=== PATIENT | female | born 1990 | race Caucasian/White ===

== ENCOUNTER 2017-01-07 17:59 | Emergency (ER) | payer OTHER ==
[2017-01-07 18:10] VITALS: O2SAT 100
[2017-01-07] MEDS ORDERED: Rhogam Plus 300 MCG IM ONE (18:24)
[2017-01-07 18:27] LABS: ADD URINE CULTURE? NO (NO); Bilirubin NEGATIVE (NEGATIVE); Blood NEGATIVE Ery/ul (0-5); COMPLETE URINE MICROSCOPIC? NO; Collection Type CLEAN CATCH; Glucose NEGATIVE (NEGATIVE); Leukocyte Esterase NEGATIVE (NEGATIVE)
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
[2017-01-07 18:50] LABS: BASOPHIL % 0.3 % (0.0-0.4); Eosinophil % 2.5 % (0.00-5.0); Granulocytes % 63.3 % (36.0-66.0); Lymphocytes % 26.3 % (24.0-44.0); Mean Cell Volume 86.9 fl (78-100); Mean Platelet Volume 10.9 fl (6-9.5); Monocytes % 7.6 % (0.0-12.0); Platelet Count 196 K/mm3 (150-450); Red Blood Count 3.96 M/mm3 (4.1-5.4); Red Cell Distribution Width 12.1 % (11.5-14.0); White Blood Count 7.5 K/mm3 (4.0-10.5)
[2017-01-07 18:58] LABS: Mean Corpuscular Hemoglobin 29.2 pg (26-32)
[2017-01-07 20:30] VITALS: BP 102/70; PULSE 72
== END 2017-01-07 20:30 | disposition home or self-care (01) ==
LOC: ED 17:59
DX: O36.0920 Maternal care for other rhesus isoimmunization, second trimester, not applicable or unspecified (principal); Z3A.15 15 weeks gestation of pregnancy; V43.53XA Car driver injured in collision with pick-up truck in traffic accident, initial encounter
CPT/HCPCS: 36415; 81002; 85025; 86850; 86900; 86901; 96372; 99284; J2790

== ENCOUNTER 2017-05-15 15:50 | Observation (INO) | payer OTHER ==
[2017-05-15 17:42] LABS: Appearance CLOUDY (CLEAR)
[2017-05-15 17:43] LABS: Amourphous Crystal MODERATE /HPF (NEGATIVE); Bacteria FEW /HPF (NEGATIVE); Bilirubin NEGATIVE (NEGATIVE); Blood NEGATIVE Ery/ul (0-5); Epithelial Cells MODERATE /HPF (FEW); Glucose NEGATIVE (NEGATIVE); Ketones NEGATIVE (NEGATIVE); Leukocyte Esterase 1+ (NEGATIVE); Nitrite NEGATIVE (NEGATIVE); Protein,Urine Dip NEGATIVE (Negative); Urobilinogen NORMAL mg/dL (0-1)
[2017-05-15] MEDS ORDERED: Lactated Ringers 1,000 ML IV ONE (18:06)
[2017-05-15] MEDS ORDERED: Lactated Ringers 1,000 ML IV SCH (18:30)
[2017-05-15 18:35] LABS: Amphetamine,Urine NEGATIVE (NEGATIVE); Barbiturate,Urine NEGATIVE (NEGATIVE); Benzodiazepine,Urine NEGATIVE (NEGATIVE); Cocaine,Urine NEGATIVE (NEGATIVE); Methadone,Urine NEGATIVE (NEGATIVE); Opiate,Urine NEGATIVE (NEGATIVE); PCP,Urine NEGATIVE (NEGATIVE); THC,Urine NEGATIVE (NEGATIVE)
[2017-05-15] MEDS ORDERED: BRETHINE 1 MG/ML SQ ONE (20:46)
[2017-05-15] MEDS ORDERED: BRETHINE 1 MG/ML ONE (20:47)
[2017-05-15 23:33] VITALS: BP 128/65; PULSE 104
== END 2017-05-15 23:22 | disposition home or self-care (01) ==
LOC: OB 15:50
PROVIDERS: ADMIT Family Medicine; ATTEND Family Medicine
DX: Z34.83 Encounter for supervision of other normal pregnancy, third trimester (principal)
CPT/HCPCS: 80307; 81000; G0378

== ENCOUNTER 2017-06-07 17:38 | Inpatient (IN) | payer OTHER ==
[2017-06-07 18:32] LABS: Amphetamine,Urine NEGATIVE (NEGATIVE); Barbiturate,Urine NEGATIVE (NEGATIVE); Benzodiazepine,Urine NEGATIVE (NEGATIVE); Cocaine,Urine NEGATIVE (NEGATIVE); Methadone,Urine NEGATIVE (NEGATIVE); Opiate,Urine NEGATIVE (NEGATIVE); PCP,Urine NEGATIVE (NEGATIVE); THC,Urine NEGATIVE (NEGATIVE)
[2017-06-07] MEDS ORDERED: MORPHINE SULFATE 4 MG INJ ONE (20:24)
[2017-06-07] MEDS ORDERED: Reglan 10 MG/2 ML ONE (20:35)
[2017-06-07] MEDS ORDERED: Pepcid 20 MG VIAL IV ONE (20:35)
[2017-06-07] MEDS ORDERED: Lactated Ringers 1,000 ML IV ONE ×2 (20:36→21:00)
[2017-06-07] MEDS ORDERED: Pepcid 20 MG VIAL IV SCH (21:00)
[2017-06-07] MEDS ORDERED: CEFAZOLIN 2 GM-D5W BAG** 2 GM/50 ML ML IV SCH (21:00)
[2017-06-07] MEDS ORDERED: Reglan 10 MG/2 ML IV SCH (21:00)
[2017-06-07 21:02] LABS: Hematocrit 33.7 % (35-47); Mean Cell Volume 84.7 fl (78-100); Mean Corpuscular Hemoglobin 27.6 pg (26-32); Mean Corpuscular Hgb Concent. 32.6 g/dl (32-36); Mean Platelet Volume 11.1 fl (6-9.5); Platelet Count 219 K/mm3 (150-450); Red Blood Count 3.98 M/mm3 (4.1-5.4); Red Cell Distribution Width 12.7 % (11.5-14.0); White Blood Count 12.2 K/mm3 (4.0-10.5)
[2017-06-07 21:17] LABS: INR 1.02 (0.8-3.0)
[2017-06-07 21:20] LABS: PTT 27.8 SECONDS (25.3-37.0)
[2017-06-07 21:32] LABS: ABO TYPING A; RH TYPING NEGATIVE
[2017-06-07 21:33] LABS: Antibody Screen POSITIVE (NEGATIVE)
[2017-06-07] MEDS ORDERED: CLARITIN 10 MG PO PRN (22:00)
[2017-06-07] MEDS ORDERED: Narcan 0.4 MG/ML IV PRN (22:00)
[2017-06-07] MEDS ORDERED: PERCOCET TABLET 5/325MG PO PRN (22:00)
[2017-06-07] MEDS ORDERED: MORPHINE SULFATE 2 MG INJ IV PRN (22:00)
[2017-06-07] MEDS ORDERED: DEMEROL 50 MG IV PRN (22:00)
[2017-06-07] MEDS ORDERED: BENADRYL 50 MG/ML IV PRN (22:00)
[2017-06-07] MEDS ORDERED: HOLD NARCOTIC ANALGESICS AND SEDATIVES X24 HR MC PRN (22:00)
[2017-06-07] MEDS: Zofran 4 MG/2 ML VIAL IV PRN (22:40)
[2017-06-07] MEDS ORDERED: Zofran 4 MG/2 ML VIAL ONE (22:52)
[2017-06-07] MEDS ORDERED: Dulcolax 10 MG SUPP PR PRN (23:11)
[2017-06-07] MEDS ORDERED: LANSINOH 40 GM TOP PRN (23:11)
[2017-06-07] MEDS ORDERED: Mylicon 80MG PO PRN (23:11)
[2017-06-07] MEDS ORDERED: Anucort-HC SUPPOSITORY PR PRN (23:11)
[2017-06-07] MEDS ORDERED: TYLENOL EXTRA STRENGTH 500 MG PO PRN (23:11)
[2017-06-07] MEDS ORDERED: CORTISONE 1% CREAM TP PRN (23:11)
[2017-06-07] MEDS ORDERED: Dextrose 5%-Lr IV Solution 1000 ML 1,000 ML IV SCH (23:30)
[2017-06-07] MEDS: Nubain 10 MG/ML IV PRN (23:30)
[2017-06-08] MEDS: Zofran 4 MG/2 ML VIAL IV PRN (02:48)
[2017-06-08 05:06] LABS: Appearance CLEAR (CLEAR); Bilirubin NEGATIVE (NEGATIVE); Blood 250 Ery/ul (0-5); Glucose NEGATIVE (NEGATIVE); Ketones SMALL (NEGATIVE); Leukocyte Esterase NEGATIVE (NEGATIVE); Nitrite NEGATIVE (NEGATIVE); Protein,Urine Dip NEGATIVE (Negative); Urobilinogen NORMAL mg/dL (0-1)
[2017-06-08 05:07] LABS: Bacteria FEW /HPF (NEGATIVE); Epithelial Cells MODERATE /HPF (FEW); Mucus MODERATE /HPF (NEGATIVE); WBC 0-2 /HPF (0-5)
[2017-06-08 05:25] LABS: Hematocrit 30.1 % (35-47); Hemoglobin 9.6 gm/dl (12.0-16.0); Mean Corpuscular Hemoglobin 27.4 pg (26-32); Mean Corpuscular Hgb Concent. 31.9 g/dl (32-36); Mean Platelet Volume 12.1 fl (6-9.5); Platelet Count 137 K/mm3 (150-450); Red Cell Distribution Width 12.7 % (11.5-14.0)
[2017-06-08 05:58] LABS: BAND 5 % (0.0-2.0); Lymphocytes 15 % (24-44); Monocyte 7 % (0.0-12.0); Neutrophils 73 % (36.0-66.0); Platelet Estimate DECREASED (NORMAL); Total Cells Counted 100
--- NOTE | 2017-06-08 07:52 | OP ---
SURGERY DATE/TIME: 06/07/20172114 PREOPERATIVE DIAGNOSES: 1) Term intrauterine in active labor. 2) History of prior section. POSTOPERATIVE DIAGNOSES: 1) Term intrauterine in active labor. 2) History of prior section. PROCEDURE: Repeat low transverse section. SURGEON: Eagle Zuñiga M.D. [employer]: certification technician. ESTIMATED BLOOD LOSS: 300 cc. IV FLUIDS: 1200 cc of crystalloid. URINE OUTPUT: 50 cc of clear straw-colored urine. ANESTHESIA: Spinal by Ralph Gillis CRNA. SPECIMENS: None. DESCRIPTION OF PROCEDURE: After informed written consent was obtained, the patient was taken to the operating room. She underwent spinal anesthesia. She was prepped and draped in the usual sterile fashion. Anesthesia was tested and noted to be adequate. A low transverse skin incision was made by knife through the area of prior scar and carried down to the subcutaneous fat to the level of the fascia. The fascia was nicked on both sides of the midline using curved Wadsworth scissors extended in horizontal fashion. The superior free edge of the fascia was grasped with Minerva clamps and the underlying rectus muscles were dissected free. The same was repeated inferiorly. The peritoneal cavity was opened and extended in horizontal fashion. Bladder blade was inserted. Bladder flap was created and reflected over the lower uterine segment. A horizontal uterine incision was made by knife and carried down to the amniotic membranes which were carefully artificially ruptured. Clear fluid was encountered. A viable male infant delivered from the vertex presentation with a strong cry immediately upon delivery. Oropharynx and nares were bulb suctioned free. The cord was clamped and cut and he was handed off to the awaiting nursery team. The placenta was manually removed from the uterus and the uterus was exteriorized. The uterine cavity was sponge curetted clean with lap sponge. The uterine incision was closed with #1 chromic in a running locked fashion. Good closure and good hemostasis were achieved. No active bleeding was noted. The posterior cul-de-sac was wiped free of blood and clot with moist lap sponge and the uterus was returned to the peritoneal cavity. Lateral gutters were wiped free of blood and clot with moist lap sponge and again the uterine incision was inspected and noted to be well approximated with good hemostasis. Next, the fascia was closed with 0 Vicryl in a running fashion with good closure and good hemostasis. Subcutaneous fat was irrigated with warm, sterile saline. Finally the skin layer was closed with 4-0 undyed Vicryl in a running subcuticular fashion. Steri-Strips and occlusive dressing were placed over the incision. The patient was transferred to the recovery in good condition.
[2017-06-08] MEDS: Nubain 10 MG/ML IV PRN (09:44)
[2017-06-08] MEDS ORDERED: Rhogam Plus 300 MCG IM ONE (10:00)
[2017-06-08] MEDS: FERREX 150 PO SCH (14:09)
[2017-06-08] MEDS: Colace 100 MG PO SCH ×3 (14:09→21:58)
[2017-06-08] MEDS: MOTRIN 400 MG PO PRN (20:21)
[2017-06-08] MEDS ORDERED: DEMEROL 75 MG IM PRN (22:00)
[2017-06-08] MEDS ORDERED: NORCO 5/325 MG PO PRN (22:00)
[2017-06-08] MEDS ORDERED: Phenergan 25 MG INJ IM PRN (22:00)
[2017-06-09] MEDS: MOTRIN 400 MG PO PRN ×3 (05:10→21:23)
--- NOTE | 2017-06-09 09:11 | PCM.DS ---
Discharge Summary Date of Admission: 06/07/17 17:38 Admitting Physician: HAL RAYMOND Consults: Consults on Case 06/07/17 21:00 Notify Anesthesia Provider ROUTINE Primary Care Provider: HAL RAYMOND Allergies Allergies No Known Drug Allergies Allergy (Verified 05/15/17 16:30) Hospital Summary - Hospital Course Hospital Course: arrived in labor at 37 wks, hx prior . had uneventful post-op course after repeat c/s. mild lochia, pain controlled with ibuprofen and tolerating po. - Vitals & Intake/Output Vital Signs: Vital Signs Temperature 97.8 F 06/09/17 05:45 Pulse Rate 82 06/09/17 05:45 Respiratory Rate 18 06/09/17 05:45 Blood Pressure 114/55 06/09/17 05:45 O2 Sat by Pulse Oximetry 96 06/08/17 19:30 Intake & Output: Intake & Output 06/06/17 06/07/17 06/08/17 06/09/17 11:59 11:59 11:59 11:59 Intake Total 997 Output Total 250 Balance 747 Weight 80.286 kg - Lab Result Diagrams: 06/08/17 04:52 Micro Results-Entire Visit: Microbiology 06/07/17 21:25 Urine Culture - Preliminary Urine, Catheterized NO GROWTH TO DATE Discharge Exam General Appearance: no apparent distress, alert Skin Exam: normal color, warm, dry Respiratory Exam: normal breath sounds, lungs clear, No respiratory distress Cardiovascular Exam: regular rate/rhythm, normal heart sounds Gastrointestinal/Abdomen Exam: soft, No tenderness, No mass Extremity Exam: normal inspection, normal range of motion Final Diagnosis/Problem List - Final Discharge Diagnosis/Problem (1) delivery delivered Current Visit: Yes Status: Acute Assessment & Plan: doing great, f/u 1 week - Discharge Disposition: Home, Self-Care Condition: Stable Prescriptions: No Action No Reportable Medications [No Reported Medications] Follow up with: HAL RAYMOND MD [Primary Care Provider] - 1 Week
[2017-06-09] MEDS: Colace 100 MG PO SCH (10:17)
[2017-06-09] MEDS: FERREX 150 PO SCH (10:17)
[2017-06-09] MEDS ORDERED: Astramorph-Pf 5 MG/10 ML IV ONE (16:20)
[2017-06-09] MEDS ORDERED: Marcaine Mpf 0.5% Vial 30 Ml IV ONE (16:20)
[2017-06-09] MEDS ORDERED: PHENYLEPHRINE HCL IV ONE (16:20)
[2017-06-09 20:31] VITALS: O2SAT 98
[2017-06-09 23:57] VITALS: BP 126/81; PULSE 100
== END 2017-06-09 22:40 | disposition home or self-care (01) | DRG 766 ==
LOC: OBSVTOIN 17:38 → OB 17:38
PROVIDERS: ADMIT Family Medicine; ATTEND Family Medicine
PROC: 10D00Z1 Extraction of Products of Conception, Low, Open Approach (ICD-10-PCS; principal; 2017-06-07)
DX: O34.211 Maternal care for low transverse scar from previous cesarean delivery (principal); Z37.0 Single live birth; Z3A.37 37 weeks gestation of pregnancy
CPT/HCPCS: 36415; 62322; 64488; 76937; 76942; 80307; 81000; 85025; 85027; 85461; 85610; 85730; 86850; 86870; 86900; 86901; 87086; 94799; 96372; G0378; J0690; J1200; J2270; J2274; J2300; J2370; J2405; J2790; A9270-GY

== ENCOUNTER 2017-10-09 13:21 | Emergency (ER) | payer OTHER ==
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
[2017-10-09 13:36] VITALS: BP 116/62; PULSE 90; O2SAT 98
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
== END 2017-10-09 14:32 | disposition home or self-care (01) ==
LOC: ED 13:21
DX: S90.121A Contusion of right lesser toe(s) without damage to nail, initial encounter (principal); W22.8XXA Striking against or struck by other objects, initial encounter; Y92.009 Unspecified place in unspecified non-institutional (private) residence as the place of occurrence of the external cause
CPT/HCPCS: 73630; 99283

== ENCOUNTER 2019-03-11 10:07 | Observation (INO) | payer OTHER ==
--- NOTE | 2019-03-11 11:32 | XRAY ---
Indication: Evaluate RUSTAM. Limited OB ultrasound performed to evaluate RUSTAM. There is a single intrauterine with heart rate 152 BPM. Four-quadrant RUSTAM is 9 cm, largest pocket 3.5 cm.
[2019-03-11 11:48] VITALS: BP 108/63; PULSE 92; O2SAT 96
[2019-03-11 11:54] LABS: Amphetamine,Urine NEGATIVE (NEGATIVE); Barbiturate,Urine NEGATIVE (NEGATIVE); Benzodiazepine,Urine NEGATIVE (NEGATIVE); Cocaine,Urine NEGATIVE (NEGATIVE); Methadone,Urine NEGATIVE (NEGATIVE); Opiate,Urine NEGATIVE (NEGATIVE); PCP,Urine NEGATIVE (NEGATIVE); THC,Urine NEGATIVE (NEGATIVE)
== END 2019-03-11 11:30 | disposition home or self-care (01) ==
LOC: UNDOADMOB 10:07 → OB 10:07 → UNDODISOB 11:30
PROVIDERS: ADMIT Family Medicine; ATTEND Family Medicine
DX: Z34.83 Encounter for supervision of other normal pregnancy, third trimester (principal)
CPT/HCPCS: 59025; 76815; 80307; G0378

== ENCOUNTER 2019-04-07 16:48 | Inpatient (IN) | payer OTHER ==
[2019-04-07] MEDS: Lactated Ringers 1,000 ML IV SCH ×2 (17:53→18:42)
[2019-04-07 18:21] LABS: Amphetamine,Urine NEGATIVE (NEGATIVE); Barbiturate,Urine NEGATIVE (NEGATIVE); Benzodiazepine,Urine NEGATIVE (NEGATIVE); Cocaine,Urine NEGATIVE (NEGATIVE); Methadone,Urine NEGATIVE (NEGATIVE); Opiate,Urine NEGATIVE (NEGATIVE); PCP,Urine NEGATIVE (NEGATIVE); THC,Urine NEGATIVE (NEGATIVE)
[2019-04-07 18:42] LABS: Appearance SLIGHTLY CLOUDY (CLEAR); Bacteria RARE /HPF (NEGATIVE); Bilirubin NEGATIVE (NEGATIVE); Blood NEGATIVE Ery/ul (0-5); Epithelial Cells RARE /HPF (FEW); Glucose NEGATIVE (NEGATIVE); Ketones NEGATIVE (NEGATIVE); Leukocyte Esterase NEGATIVE (NEGATIVE); Mucus SLIGHT /HPF (NEGATIVE); Nitrite NEGATIVE (NEGATIVE); Protein,Urine Dip 30 (Negative); Specific Gravity 1.018 (1.005-1.025); Urobilinogen 2 mg/dL (0-1)
[2019-04-07 18:44] LABS: Hematocrit 31.3 % (35-47); Hemoglobin 10.1 gm/dl (12.0-16.0); Mean Cell Volume 85.5 fl (78-100); Mean Corpuscular Hemoglobin 27.6 pg (26-32); Mean Corpuscular Hgb Concent. 32.3 g/dl (32-36); Mean Platelet Volume 10.5 fl (7.5-11.0); Platelet Count 177 K/mm3 (150-450); Red Blood Count 3.66 M/mm3 (4.1-5.4); Red Cell Distribution Width 12.6 % (11.5-14.0)
[2019-04-07] MEDS ORDERED: Pepcid 20 MG VIAL IV SCH (18:45)
[2019-04-07] MEDS ORDERED: BICITRA 30 ML CUP PO SCH (18:45)
[2019-04-07] MEDS ORDERED: Reglan 10 MG/2 ML IV SCH (18:45)
[2019-04-07 18:53] LABS: INR 1.05 (0.8-3.0); PROTIME 11.9 SECONDS (9.95-12.35)
[2019-04-07 18:55] LABS: PTT 29.2 SECONDS (25.3-37.0)
[2019-04-07] MEDS ORDERED: CEFAZOLIN 2 GM-D5W BAG** 2 GM/50 ML ML IV SCH (19:00)
[2019-04-07] MEDS ORDERED: Lactated Ringers 1,000 ML IV SCH (19:00)
[2019-04-07 19:36] LABS: ABO TYPING A; Antibody Screen POSITIVE (NEGATIVE); RH TYPING NEGATIVE
[2019-04-07] MEDS ORDERED: Astramorph-Pf 5 MG/10 ML ONE (19:45)
[2019-04-07] MEDS ORDERED: Pitocin 10 UNITS/ML ONE (19:59)
[2019-04-07] MEDS ORDERED: Zofran 4 MG/2 ML VIAL ONE (20:00)
[2019-04-07] MEDS ORDERED: Decadron 4 MG INJ ONE ×2 (20:00→20:28)
[2019-04-07] MEDS ORDERED: HOLD NARCOTIC ANALGESICS AND SEDATIVES X24 HR MC PRN (20:20)
[2019-04-07] MEDS ORDERED: Marcaine Spinal Ampul IJ ONE (20:28)
[2019-04-07] MEDS ORDERED: Naropin 0.5% 30 ML VIAL ONE (20:28)
[2019-04-07] MEDS ORDERED: Xylocaine-Mpf 2% 5 Ml Vial ONE (20:28)
[2019-04-07] MEDS ORDERED: TYLENOL EXTRA STRENGTH 500 MG PO PRN (21:26)
[2019-04-07] MEDS ORDERED: Dulcolax 10 MG SUPP PR PRN (21:26)
[2019-04-07] MEDS ORDERED: MOTRIN 400 MG PO PRN (21:26)
[2019-04-07] MEDS ORDERED: Ambien 10 MG PO PRN (21:26)
[2019-04-07] MEDS ORDERED: LANSINOH 40 GM TOP PRN (21:26)
[2019-04-07] MEDS ORDERED: Anucort-HC SUPPOSITORY PR PRN (21:26)
[2019-04-07] MEDS ORDERED: TUCKS TP PRN (21:26)
[2019-04-07] MEDS ORDERED: CORTISONE 1% CREAM TP PRN (21:26)
[2019-04-07] MEDS ORDERED: Dermoplast Spray TP PRN (21:26)
[2019-04-07] MEDS ORDERED: Phenergan 25 MG INJ IM PRN (21:26)
[2019-04-07] MEDS ORDERED: Mylicon 80MG PO PRN (21:26)
[2019-04-07] MEDS ORDERED: Dextrose 5%-Lr IV Solution 1000 ML 1,000 ML IV SCH (21:30)
[2019-04-07] MEDS ORDERED: Nubain 10 MG/ML IV PRN (21:41)
[2019-04-07] MEDS ORDERED: PERCOCET TABLET 5/325MG PO PRN (21:41)
[2019-04-07] MEDS ORDERED: CLARITIN 10 MG PO PRN (21:41)
[2019-04-07] MEDS ORDERED: Narcan 0.4 MG/ML IV PRN (21:41)
[2019-04-07] MEDS ORDERED: DEMEROL 50 MG IV PRN (21:41)
[2019-04-07] MEDS ORDERED: BENADRYL 50 MG/ML IV PRN (21:41)
[2019-04-07] MEDS ORDERED: Zofran 4 MG/2 ML VIAL IV PRN (21:41)
[2019-04-07] MEDS ORDERED: MORPHINE SULFATE 2 MG INJ IV PRN (21:41)
[2019-04-07] MEDS: Colace 100 MG PO SCH (21:46)
[2019-04-08 06:40] LABS: Absolute Neutrophil Ct (ANC) 13.88 (1.4-6.9); BASOPHIL % 0.1 % (0.0-0.4); Basophil (Absolute #) 0.01 (0-0.4); Eosinophil % 0.1 % (0.00-5.0); Eosinophil (Absolute #) 0.01 (0-0.5); Hematocrit 27.8 % (35-47); Hemoglobin 8.9 gm/dl (12.0-16.0); Lymphocyte (Absolute #) 1.07 (1.0-4.6); Mean Cell Volume 85.5 fl (78-100); Mean Corpuscular Hemoglobin 27.4 pg (26-32); Mean Platelet Volume 11.2 fl (7.5-11.0); Monocyte (Absolute #) 0.34 (0.0-1.3); Monocytes % 2.2 % (0.0-12.0); Neutrophil % 90.6 % (36.0-66.0); Platelet Count 228 K/mm3 (150-450); Red Blood Count 3.25 M/mm3 (4.1-5.4); Red Cell Distribution Width 12.4 % (11.5-14.0); White Blood Count 15.3 K/mm3 (4.0-10.5)
[2019-04-08] MEDS ORDERED: Rhogam Plus 300 MCG IM ONE (09:00)
[2019-04-08 09:50] VITALS: BP 120/62; PULSE 93; O2SAT 98
[2019-04-08] MEDS: Colace 100 MG PO SCH (09:52)
[2019-04-08] MEDS ORDERED: FERREX 150 PO SCH (10:00)
--- NOTE | 2019-04-08 11:12 | OP ---
SURGERY DATE/TIME: 04/07/20191935 PREOPERATIVE DIAGNOSES: 1) Term intrauterine in active labor. 2) History of prior section. POSTOPERATIVE DIAGNOSES: 1) Term intrauterine in active labor. 2) History of prior section. PROCEDURE: Repeat low transverse section. SURGEON: Eagle Zuñiga M.D. ESTIMATED BLOOD LOSS: 400 cc. IV FLUIDS: 2 liters of crystalloid. URINE OUTPUT: 30 cc of clear straw-colored urine. ANESTHESIA: Spinal by Karson Alonso CRNA. SPECIMENS: Placenta was sent for pathology. DESCRIPTION OF PROCEDURE: After informed written consent was obtained, the patient was taken to the operating room. She had previously undergone spinal anesthesia in the OB Department, prepped and draped in the usual sterile fashion after a [place] catheter had been inserted. After adequate level of anesthesia was assessed, a low transverse skin incision was made by knife and carried down through the subcutaneous fat to the level of the fascia. The fascia was nicked on both sides of the midline, extended horizontal using curved Wadsworth scissors. The superior free edge of the fascia was grasped and the underlying rectus muscles were dissected free with curved Wadsworth scissors. The same was repeated inferiorly. The peritoneal cavity was opened and extended in horizontal orientation bluntly. Bladder flap was then created and reflected over the lower uterine segment. Horizontal uterine incision was made by knife and carried down to the level of the amniotic membranes which were carefully artificially ruptured. A viable male delivered from the vertex presentation with some difficulty elevating the head from the pelvis. Therefore a Kiwi vacuum was used with no pop-off to assist to easily guide the head out. The cord was clamped and cut. The oropharynx and nares were bulb syringed and he was handed off to the awaiting nursery team. The placenta was manually extracted and the uterus exteriorized. The uterine cavity was wiped free of blood and clot with moist lap sponge. Any remaining membranes were removed as well. The uterine incision was closed with #1 chromic in a running locked fashion with good closure and good hemostasis. The posterior cul-de-sac was wiped free of blood and clot with moist lap sponge. The uterus was returned to the peritoneal cavity. Lateral gutters were wiped free of blood and clot. Again, the uterine incision was noted to be hemostatic and well approximated upon inspection. Next, the fascia was closed with 0 Vicryl in a running fashion. Good closure and good hemostasis were achieved. The subcutaneous fat was irrigated with warm, sterile saline and any areas of bleeding were cauterized with electrocautery. Finally, the skin layer was closed with 4-0 undyed Vicryl in a running subcuticular fashion. Steri-Strips and occlusive dressing were placed over the incision and the patient was transferred to the recovery room in good condition.
--- NOTE | 2019-04-08 11:58 | PCM.DS ---
Discharge Summary Date of Admission: 04/07/19 18:35 Admitting Physician: HAL RAYMOND Consults: Consults on Case 04/07/19 18:36 Notify Physician OF ADMISSION 04/07/19 18:37 Notify Anesthesia Provider ROUTINE Primary Care Provider: HAL RAYMOND Allergies Allergies No Known Drug Allergies Allergy (Verified 05/15/17 16:30) Hospital Summary - Hospital Course Hospital Course: had repeat on 04/07 with no complications. mild lochia and pain well controlled, she is ambulating and tolerating po POD #1, doing great. baby is being transferred to [facility] for respiratory distress - Vitals & Intake/Output Vital Signs: Vital Signs Temperature 98.3 F 04/08/19 08:00 Pulse Rate 93 H 04/08/19 08:00 Respiratory Rate 18 04/08/19 08:00 Blood Pressure 120/62 04/08/19 08:00 O2 Sat by Pulse Oximetry 98 04/08/19 08:00 Intake & Output: Intake & Output 04/05/19 04/06/19 04/07/19 04/08/19 11:59 11:59 11:59 11:59 Output Total 1400 Balance -1400 Weight 80.286 kg - Lab Result Diagrams: 04/08/19 06:10 Lab Results-Last 24 Hrs: Lab Results-Last 24 Hours 04/07/19 04/07/19 04/07/19 Range/Units 18:03 18:27 18:40 WBC 10.0 (4.0-10.5) K/mm3 RBC 3.66 L (4.1-5.4) M/mm3 Hgb 10.1 L (12.0-16.0) gm/dl Hct 31.3 L (35-47) % MCV 85.5 (78-100) fl MCH 27.6 (26-32) pg MCHC 32.3 (32-36) g/dl RDW 12.6 (11.5-14.0) % Plt Count 177 (150-450) K/mm3 MPV 10.5 (7.5-11.0) fl Gran % (36.0-66.0) % Eos # (Auto) (0-0.5) Absolute Lymphs (auto) (1.0-4.6) Absolute Monos (auto) (0.0-1.3) Lymphocytes % (24.0-44.0) % Monocytes % (0.0-12.0) % Eosinophils % (0.00-5.0) % Basophils % (0.0-0.4) % Absolute Granulocytes (1.4-6.9) Basophils # (0-0.4) PT (9.95-12.35) SECONDS INR (0.8-3.0) APTT (25.3-37.0) SECONDS Urine Color YELLOW (YELLOW) Urine Appearance SLIGHTLY CLOUDY (CLEAR) Urine pH 6.0 (5-6) Ur Specific Dawson 1.018 (1.005-1.025) Urine Protein 30 (Negative) Urine Ketones NEGATIVE (NEGATIVE) Urine Blood NEGATIVE (0-5) Brandon/ul Urine Nitrite NEGATIVE (NEGATIVE) Urine Bilirubin NEGATIVE (NEGATIVE) Urine Urobilinogen 2 (0-1) mg/dL Ur Leukocyte Esterase NEGATIVE (NEGATIVE) Urine WBC (Auto) 3-5 (0-5) /HPF Urine RBC (Auto) NONE (0-2) /HPF U Epithel Cells (Auto) RARE (FEW) /HPF Urine Bacteria (Auto) RARE (NEGATIVE) /HPF Urine Mucus (Auto) SLIGHT (NEGATIVE) /HPF Urine Culture Reflexed NO (NO) Urine Glucose NEGATIVE (NEGATIVE) mg/dL Urine Opiates Level NEGATIVE (NEGATIVE) Ur Methadone NEGATIVE (NEGATIVE) Urine Barbiturates NEGATIVE (NEGATIVE) Ur Phencyclidine (PCP) NEGATIVE (NEGATIVE) Urine Amphetamine NEGATIVE (NEGATIVE) U Benzodiazepine Level NEGATIVE (NEGATIVE) Urine Cocaine NEGATIVE (NEGATIVE) Urine Marijuana (THC) NEGATIVE (NEGATIVE) ABO Group Rh Factor Antibody Screen (NEGATIVE) Screen 04/07/19 04/07/19 04/07/19 Range/Units 18:40 18:40 21:19 WBC (4.0-10.5) K/mm3 RBC (4.1-5.4) M/mm3 Hgb (12.0-16.0) gm/dl Hct (35-47) % MCV (78-100) fl MCH (26-32) pg MCHC (32-36) g/dl RDW (11.5-14.0) % Plt Count (150-450) K/mm3 MPV (7.5-11.0) fl Gran % (36.0-66.0) % Eos # (Auto) (0-0.5) Absolute Lymphs (auto) (1.0-4.6) Absolute Monos (auto) (0.0-1.3) Lymphocytes % (24.0-44.0) % Monocytes % (0.0-12.0) % Eosinophils % (0.00-5.0) % Basophils % (0.0-0.4) % Absolute Granulocytes (1.4-6.9) Basophils # (0-0.4) PT 11.9 (9.95-12.35) SECONDS INR 1.05 (0.8-3.0) APTT 29.2 (25.3-37.0) SECONDS Urine Color (YELLOW) Urine Appearance (CLEAR) Urine pH (5-6) Ur Specific Dawson (1.005-1.025) Urine Protein (Negative) Urine Ketones (NEGATIVE) Urine Blood (0-5) Brandon/ul Urine Nitrite (NEGATIVE) Urine Bilirubin (NEGATIVE) Urine Urobilinogen (0-1) mg/dL Ur Leukocyte Esterase (NEGATIVE) Urine WBC (Auto) (0-5) /HPF Urine RBC (Auto) (0-2) /HPF U Epithel Cells (Auto) (FEW) /HPF Urine Bacteria (Auto) (NEGATIVE) /HPF Urine Mucus (Auto) (NEGATIVE) /HPF Urine Culture Reflexed (NO) Urine Glucose (NEGATIVE) mg/dL Urine Opiates Level (NEGATIVE) Ur Methadone (NEGATIVE) Urine Barbiturates (NEGATIVE) Ur Phencyclidine (PCP) (NEGATIVE) Urine Amphetamine (NEGATIVE) U Benzodiazepine Level (NEGATIVE) Urine Cocaine (NEGATIVE) Urine Marijuana (THC) (NEGATIVE) ABO Group A Rh Factor NEGATIVE Antibody Screen POSITIVE (NEGATIVE) Screen SEE SEPARATE REPORT 04/08/19 Range/Units 06:10 WBC 15.3 H (4.0-10.5) K/mm3 RBC 3.25 L (4.1-5.4) M/mm3 Hgb 8.9 L (12.0-16.0) gm/dl Hct 27.8 L (35-47) % MCV 85.5 (78-100) fl MCH 27.4 (26-32) pg MCHC 32.0 (32-36) g/dl RDW 12.4 (11.5-14.0) % Plt Count 228 (150-450) K/mm3 MPV 11.2 H (7.5-11.0) fl Gran % 90.6 H (36.0-66.0) % Eos # (Auto) 0.01 (0-0.5) Absolute Lymphs (auto) 1.07 (1.0-4.6) Absolute Monos (auto) 0.34 (0.0-1.3) Lymphocytes % 7.0 L (24.0-44.0) % Monocytes % 2.2 (0.0-12.0) % Eosinophils % 0.1 (0.00-5.0) % Basophils % 0.1 (0.0-0.4) % Absolute Granulocytes 13.88 H (1.4-6.9) Basophils # 0.01 (0-0.4) PT (9.95-12.35) SECONDS INR (0.8-3.0) APTT (25.3-37.0) SECONDS Urine Color (YELLOW) Urine Appearance (CLEAR) Urine pH (5-6) Ur Specific Dawson (1.005-1.025) Urine Protein (Negative) Urine Ketones (NEGATIVE) Urine Blood (0-5) Brandon/ul Urine Nitrite (NEGATIVE) Urine Bilirubin (NEGATIVE) Urine Urobilinogen (0-1) mg/dL Ur Leukocyte Esterase (NEGATIVE) Urine WBC (Auto) (0-5) /HPF Urine RBC (Auto) (0-2) /HPF U Epithel Cells (Auto) (FEW) /HPF Urine Bacteria (Auto) (NEGATIVE) /HPF Urine Mucus (Auto) (NEGATIVE) /HPF Urine Culture Reflexed (NO) Urine Glucose (NEGATIVE) mg/dL Urine Opiates Level (NEGATIVE) Ur Methadone (NEGATIVE) Urine Barbiturates (NEGATIVE) Ur Phencyclidine (PCP) (NEGATIVE) Urine Amphetamine (NEGATIVE) U Benzodiazepine Level (NEGATIVE) Urine Cocaine (NEGATIVE) Urine Marijuana (THC) (NEGATIVE) ABO Group Rh Factor Antibody Screen (NEGATIVE) Screen - Procedures and Test Procedures and Tests throughout Hospitalization: Therapy Orders & Screens 04/07/19 19:40 Standby STAT Comment: Diagnosis: REPEAT Discharge Exam General Appearance: no apparent distress, alert Respiratory Exam: normal breath sounds, lungs clear, No respiratory distress Cardiovascular Exam: regular rate/rhythm, normal heart sounds Gastrointestinal/Abdomen Exam: soft, other (incision clean, dry, intact), No tenderness, No mass Extremity Exam: normal inspection Final Diagnosis/Problem List - Final Discharge Diagnosis/Problem (1) delivery delivered Current Visit: No Status: Acute Code(s): O82 - ENCOUNTER FOR DELIVERY WITHOUT INDICATION - Discharge Disposition: Home, Self-Care Condition: Stable Prescriptions: New Docusate Sodium 100 mg [Colace 100 MG] 100 mg PO BID #60 capsule Iron Polysaccharides Complex [Ferrex 150] 150 mg PO DAILY #30 capsule Hydrocodone/APAP 5-325 Tab^^^ [Derby 5-325 Tablet^^^] 1 tab PO Q6HPRN PRN # 28 tablet MDD 6 PRN Reason: Pain Follow up with: HAL RAYMOND MD [Primary Care Provider] - 1 Week
[2019-04-08] MEDS ORDERED: NORCO 5/325 MG PO PRN (20:20)
== END 2019-04-08 13:45 | disposition home or self-care (01) | DRG 788 ==
LOC: OB 16:48 → OBSVTOIN 18:35
PROVIDERS: ADMIT Family Medicine; ATTEND Family Medicine
PROC: 10D00Z1 Extraction of Products of Conception, Low, Open Approach (ICD-10-PCS; principal; 2019-04-07)
DX: O34.211 Maternal care for low transverse scar from previous cesarean delivery (principal); Z3A.37 37 weeks gestation of pregnancy; Z37.0 Single live birth
CPT/HCPCS: 36415; 64488; 76937; 76942; 80307; 81001; 85025; 85027; 85461; 85610; 85730; 86850; 86870; 86900; 86901; 87086; 87340; 94799; 96372; G0378; J0690; J1100; J2274; J2405; J2550; J2590; J2790; J2795; A9270-GY

== ENCOUNTER 2021-10-02 19:39 | Observation (INO) | payer OTHER ==
[2021-10-02 20:14] VITALS: BP 127/68
[2021-10-02 20:45] LABS: Appearance CLEAR (CLEAR); Bilirubin NEGATIVE (NEGATIVE); Dipstick done @ ? MAIN LAB; Glucose NEGATIVE (NEGATIVE); Ketones NEGATIVE (NEGATIVE); Nitrite NEGATIVE (NEGATIVE); Ph 6.5 (5-6); Protein,Urine Dip NEGATIVE (Negative); RBC NEGATIVE Ery/ul (0-5); Specific Gravity 1.025 (1.005-1.025); Urobilinogen 0.2 mg/dL (0-1)
[2021-10-02 20:46] LABS: Epithelial Cells RARE /HPF (FEW); Mucus SLIGHT /HPF (NEGATIVE); RBC 0-2 /HPF (0-2); WBC 0-2 /HPF (0-5)
[2021-10-02 20:47] LABS: Urine Cultured Indicated? NO
[2021-10-02 20:51] LABS: Amphetamine,Urine NEGATIVE (NEGATIVE); Barbiturate,Urine NEGATIVE (NEGATIVE); Benzodiazepine,Urine NEGATIVE (NEGATIVE); Methadone,Urine NEGATIVE (NEGATIVE); Opiate,Urine NEGATIVE (NEGATIVE); PCP,Urine NEGATIVE (NEGATIVE); THC,Urine NEGATIVE (NEGATIVE)
[2021-10-02] MEDS ORDERED: Lactated Ringers 1,000 ML IV ONE ×2 (21:02→21:05)
[2021-10-02] MEDS ORDERED: Celestone Soluspan 6MG/ML IM ONE (21:02)
[2021-10-02] MEDS ORDERED: BRETHINE 1 MG/ML SQ ONE (21:02)
[2021-10-02] MEDS ORDERED: BRETHINE 1 MG/ML ONE (21:05)
[2021-10-02] MEDS ORDERED: Celestone Soluspan 6MG/ML ONE (21:05)
[2021-10-02 22:57] VITALS: PULSE 104; O2SAT 97
== END 2021-10-02 23:40 | disposition home or self-care (01) ==
LOC: OB 19:39
PROVIDERS: ADMIT Family Medicine; ATTEND Family Medicine
DX: Z34.83 Encounter for supervision of other normal pregnancy, third trimester (principal); Z3A.34 34 weeks gestation of pregnancy
CPT/HCPCS: 80307; 81015; 96372; G0378; J0702

== ENCOUNTER 2021-10-05 20:15 | Observation (INO) | payer OTHER ==
[2021-10-05 20:54] LABS: Bacteria RARE /HPF (NEGATIVE); Epithelial Cells RARE /HPF (FEW); WBC 0-2 /HPF (0-5)
[2021-10-05 20:56] LABS: Appearance CLEAR (CLEAR); Bilirubin NEGATIVE (NEGATIVE); Glucose NEGATIVE (NEGATIVE); Ketones NEGATIVE (NEGATIVE); Protein,Urine Dip NEGATIVE (Negative); RBC NEGATIVE Ery/ul (0-5); Specific Gravity 1.015 (1.005-1.025)
[2021-10-05 20:57] LABS: Dipstick done @ ? MAIN LAB; Nitrite NEGATIVE (NEGATIVE); Urine Cultured Indicated? NO; Urobilinogen 0.2 mg/dL (0-1)
[2021-10-05 21:09] LABS: Amphetamine,Urine NEGATIVE (NEGATIVE); Barbiturate,Urine NEGATIVE (NEGATIVE); Benzodiazepine,Urine NEGATIVE (NEGATIVE); Methadone,Urine NEGATIVE (NEGATIVE); Opiate,Urine NEGATIVE (NEGATIVE); PCP,Urine NEGATIVE (NEGATIVE); THC,Urine NEGATIVE (NEGATIVE)
[2021-10-05] MEDS ORDERED: Lactated Ringers 1,000 ML IV ONE ×2 (21:43→21:49)
[2021-10-05] MEDS ORDERED: BRETHINE 1 MG/ML SQ ONE (21:44)
[2021-10-05] MEDS ORDERED: BRETHINE 1 MG/ML ONE (21:49)
[2021-10-06] MEDS ORDERED: BRETHINE 1 MG/ML SQ ONE (00:08)
[2021-10-06] MEDS ORDERED: BRETHINE 1 MG/ML ONE (00:10)
[2021-10-06 01:19] VITALS: BP 117/57; PULSE 92; O2SAT 95
== END 2021-10-06 01:35 | disposition home or self-care (01) ==
LOC: OB 20:15
PROVIDERS: ADMIT Family Medicine; ATTEND Family Medicine
DX: Z34.83 Encounter for supervision of other normal pregnancy, third trimester (principal); Z3A.35 35 weeks gestation of pregnancy
CPT/HCPCS: 80307; 81015; G0378

== ENCOUNTER 2021-10-15 19:56 | Observation (INO) | payer OTHER ==
[2021-10-15 20:46] LABS: Amphetamine,Urine NEGATIVE (NEGATIVE); Barbiturate,Urine NEGATIVE (NEGATIVE); Benzodiazepine,Urine NEGATIVE (NEGATIVE); Cocaine,Urine NEGATIVE (NEGATIVE); Methadone,Urine NEGATIVE (NEGATIVE); Opiate,Urine NEGATIVE (NEGATIVE); PCP,Urine NEGATIVE (NEGATIVE); THC,Urine NEGATIVE (NEGATIVE)
[2021-10-15] MEDS ORDERED: Lactated Ringers 1,000 ML IV ONE (22:12)
[2021-10-16 06:40] VITALS: O2SAT 96
[2021-10-16 09:04] VITALS: BP 131/62; PULSE 105
== END 2021-10-16 09:45 | disposition home or self-care (01) ==
LOC: OB 19:56
PROVIDERS: ADMIT Family Medicine; ATTEND Family Medicine
DX: Z34.83 Encounter for supervision of other normal pregnancy, third trimester (principal); Z3A.36 36 weeks gestation of pregnancy
CPT/HCPCS: 80307; G0378; 99213

== ENCOUNTER 2021-10-19 16:31 | Inpatient (IN) | payer OTHER ==
[2021-10-19] MEDS ORDERED: Lactated Ringers 1,000 ML IV ONE (17:05)
[2021-10-19] MEDS ORDERED: LANSINOH 40 GM TOP PRN (18:29)
[2021-10-19] MEDS ORDERED: Mylicon 80MG PO PRN (18:29)
[2021-10-19] MEDS ORDERED: Restoril 15 MG PO PRN (18:29)
[2021-10-19] MEDS ORDERED: Anucort-HC SUPPOSITORY PR PRN (18:29)
[2021-10-19] MEDS ORDERED: TUCKS TP PRN (18:29)
[2021-10-19] MEDS ORDERED: MOTRIN 400 MG PO PRN (18:29)
[2021-10-19] MEDS ORDERED: Dulcolax 10 MG SUPP PR PRN (18:29)
[2021-10-19] MEDS ORDERED: Ambien 10 MG PO PRN (18:29)
[2021-10-19] MEDS ORDERED: NORCO 5/325 MG PO PRN (18:29)
[2021-10-19] MEDS ORDERED: CORTISONE 1% CREAM TP PRN (18:29)
[2021-10-19] MEDS ORDERED: SOD CITRATE-CITRIC ACID SOLN PO SCH (18:30)
[2021-10-19] MEDS ORDERED: Lactated Ringers 1,000 ML IV SCH (18:30)
[2021-10-19] MEDS ORDERED: CEFAZOLIN 2 GM-D5W BAG** 2 GM/50 ML ML IV SCH (18:30)
[2021-10-19] MEDS ORDERED: Reglan 10 MG/2 ML IV SCH (18:30)
[2021-10-19] MEDS ORDERED: Pepcid 20 MG VIAL IV SCH (18:30)
[2021-10-19] MEDS ORDERED: PERCOCET TABLET 5/325MG PO PRN (18:32)
[2021-10-19] MEDS ORDERED: Zofran 4 MG/2 ML VIAL IV PRN (18:32)
[2021-10-19] MEDS ORDERED: HOLD NARCOTIC ANALGESICS AND SEDATIVES X24 HR MC PRN (18:32)
[2021-10-19] MEDS ORDERED: Nubain 10 MG/ML IV PRN (18:32)
[2021-10-19] MEDS ORDERED: Narcan 0.4 MG/ML IV PRN (18:32)
[2021-10-19] MEDS ORDERED: CLARITIN 10 MG PO PRN (18:32)
[2021-10-19] MEDS ORDERED: BENADRYL 50 MG/ML IV PRN (18:32)
[2021-10-19 18:53] LABS: Hematocrit 31.6 % (35-47); Mean Cell Volume 83.8 fL (78-100); Mean Corpuscular Hemoglobin 26.5 pg (26-32); Mean Corpuscular Hgb Concent. 31.6 g/dL (32-36); Mean Platelet Volume 10.6 fL (7.5-11.0); Platelet Count 183 x10^3/uL (150-450); Red Blood Count 3.77 x10^6/uL (4.1-5.4); Red Cell Distribution Width 13.2 % (11.5-14.0); White Blood Count 7.8 x10^3/uL (4.0-10.5)
[2021-10-19] MEDS ORDERED: Astramorph-Pf 5 MG/10 ML ONE (19:03)
[2021-10-19 19:12] LABS: INR 0.98 (0.8-3.0); PROTIME 10.4 SECONDS (9.4-12.5); PTT 25.3 SECONDS (25.1-36.5)
[2021-10-19] MEDS ORDERED: Pitocin 10 UNITS/ML ONE ×3 (19:23→19:45)
[2021-10-19 19:58] LABS: ABO TYPING A; Antibody Screen NEGATIVE (NEGATIVE); RH TYPING NEGATIVE
[2021-10-19] MEDS ORDERED: Marcaine 0.5%/Epinephrine 10 ML ONE (20:07)
[2021-10-19] MEDS: Dextrose 5%-Lr IV Solution 1000 ML 1,000 ML IV SCH (21:16)
[2021-10-19 21:22] LABS: Bacteria RARE /HPF (NEGATIVE); Epithelial Cells RARE /HPF (FEW); Mucus SLIGHT /HPF (NEGATIVE); WBC 0-2 /HPF (0-5)
[2021-10-19 21:23] LABS: Appearance CLEAR (CLEAR); Bilirubin NEGATIVE (NEGATIVE); Glucose NEGATIVE (NEGATIVE); Ketones NEGATIVE (NEGATIVE); Nitrite NEGATIVE (NEGATIVE); Protein,Urine Dip TRACE (Negative); RBC SMALL Ery/ul (0-5); Urobilinogen 0.2 mg/dL (0-1)
[2021-10-19 21:24] LABS: Dipstick done @ ? MAIN LAB
[2021-10-19] MEDS ORDERED: Compazine 10 MG/2 ML IV ONE (23:32)
[2021-10-19] MEDS: Docusate Sodium 100 MG PO SCH (23:38)
[2021-10-20] MEDS ORDERED: Compazine 10 MG/2 ML IV ONE (01:55)
[2021-10-20] MEDS: Dextrose 5%-Lr IV Solution 1000 ML 1,000 ML IV SCH (05:27)
--- NOTE | 2021-10-20 07:56 | OP ---
SURGERY DATE/TIME: 10/19/20211911 PREOPERATIVE DIAGNOSES: 1) Term intrauterine in labor. 2) History of prior section. 3) Desires permanent sterilization. POSTOPERATIVE DIAGNOSES: 1) Term intrauterine in labor. 2) History of prior section. 3) Desires permanent sterilization. PROCEDURES: 1) Repeat low transverse section. 2) Bilateral tubal ligation. SURGEON: Eagle Zuñiga M.D. ESTIMATED BLOOD LOSS: 400 ml. URINE OUTPUT: 200 ml of clear straw-colored urine. ANESTHESIA: Spinal by Ralph Gillis CRNA. SPECIMEN: Bilateral fallopian tube segments. DESCRIPTION OF PROCEDURE: After informed written consent was obtained, the patient was taken to the operating room. She underwent spinal anesthesia. A [place] catheter inserted. She was prepped and draped in the usual sterile fashion. After adequate level of anesthesia was assessed, a low transverse skin incision was made by knife and carried down through the subcutaneous fat to the level of the fascia. The fascia was nicked on both sides of the midline and extended horizontal using curved Wadsworth scissors. The superior edge of the fascia was grasped with Minerva clamps and carefully the rectus muscles were dissected free this was done with some difficulty due to extensive scar tissue both on the superior and inferior aspect of the fascia. The peritoneal cavity was opened in blunt fashion extended horizontal. Next, a bladder flap was created and reflected over lower uterine segment. A horizontal uterine incision was made by knife and carried down to the level of the amniotic membranes which were carefully artificially ruptured. There was clear amniotic fluid encountered on ruptured membranes. A viable male was delivered from the vertex presentation with a strong cry immediately present upon delivery. The oropharynx and nares were bulb suctioned free. The cord was clamped and cut and he was handed off to the awaiting nursery team. Next, the placenta was manually extracted and the uterus was exteriorized. The uterine cavity was sponge curetted clean with a lap sponge and the uterine incision was closed with #1 chromic in a running locked fashion with good hemostasis and good closure. Next, the left fallopian tube was identified grasped with a [place] and then a window was made in the mesoappendix with electrocautery. The proximal and distal segments of the tube were then ligated with 0 chromic tie and the interceding tube segment was dissected free with Metzenbaum scissors and the free end of the tube was cauterized with electrocautery. The same was repeated on the right side. Both tube segments were sent for pathology. The posterior cul-de-sac was wiped free of blood and clot and then the uterus was returned to the peritoneal cavity. The lateral gutters were wiped free of blood and clot. Again, the uterine incision was noted to have good closure and hemostasis. Next, the fascia was closed with 0 Vicryl in running fashion with good closure and good hemostasis at this level as well. Subcutaneous fat was then irrigated with warm, sterile saline and any areas of bleeding were cauterized with electrocautery. Finally, the skin layer was closed with 4-0 undyed Vicryl in a running subcuticular fashion. Steri-Strips and occlusive dressing were placed over the incision. The patient was transferred to the recovery room in good condition.
[2021-10-20 08:07] LABS: Absolute Neutrophil Ct (ANC) 6.16 x10^3/uL (1.4-6.9); Basophil (Absolute #) 0.02 x10^3/uL (0-0.4); Eosinophil % 0.4 % (0.00-5.0); Eosinophil (Absolute #) 0.03 x10^3/uL (0-0.5); Hematocrit 28.9 % (35-47); Hemoglobin 9.1 g/dL (12.0-16.0); Lymphocytes % 12.8 % (24.0-44.0); Mean Corpuscular Hemoglobin 26.8 pg (26-32); Mean Corpuscular Hgb Concent. 31.5 g/dL (32-36); Mean Platelet Volume 10.1 fL (7.5-11.0); Monocyte (Absolute #) 0.56 x10^3/uL (0.0-1.3); Monocytes % 7.2 % (0.0-12.0); Neutrophil % 78.8 % (36.0-66.0); Platelet Count 149 x10^3/uL (150-450); Red Cell Distribution Width 13.2 % (11.5-14.0); White Blood Count 7.8 x10^3/uL (4.0-10.5)
[2021-10-20] MEDS ORDERED: Rhogam Plus 300 MCG IM ONE (09:00)
[2021-10-20] MEDS: Docusate Sodium 100 MG PO SCH ×2 (09:30→20:43)
[2021-10-20] MEDS: FERREX 150 PO SCH (09:30)
[2021-10-20] MEDS ORDERED: Adacel Vial IM ONE (15:00)
[2021-10-20] MEDS: TYLENOL EXTRA STRENGTH 500 MG PO PRN (17:11)
[2021-10-21] MEDS: TYLENOL EXTRA STRENGTH 500 MG PO PRN (03:40)
--- NOTE | 2021-10-21 07:46 | PCM.DS ---
Discharge Summary Date of Admission: 10/19/21 16:31 Admitting Physician: HAL RAYMOND Consults: Consults on Case 10/19/21 18:29 Notify Physician OF ADMISSION 10/19/21 18:32 Notify Anesthesia Provider PRN 10/19/21 22:39 Navigation ONCE Primary Care Provider: HAL RAYMOND Allergies Allergies No Known Drug Allergies Allergy (Verified 10/19/21 20:36) Hospital Summary - Hospital Course Hospital Course: patient arrived in active labor at 37 2/7wks ega, hx 3 prior c sections. had uncomplicated repeat c/s with BTL, routine post op course. pain controlled with tylenol, mild lochia, tolerating po and doing great. is going well - Vitals & Intake/Output Vital Signs: Vital Signs Temperature 98.8 F 10/21/21 02:00 Pulse Rate 95 H 10/21/21 02:00 Respiratory Rate 20 10/21/21 02:00 Blood Pressure 128/60 10/21/21 02:00 O2 Sat by Pulse Oximetry 97 10/21/21 02:00 Intake & Output: Intake & Output 10/18/21 10/19/21 10/20/21 10/21/21 11:59 11:59 11:59 11:59 Intake Total 2839 950 Output Total 1650 Balance 1189 950 Weight 88.451 kg - Lab Result Diagrams: 10/20/21 04:00 Lab Results-Last 24 Hrs: Lab Results-Last 24 Hours 10/20/21 Range/Units 04:00 WBC 7.8 (4.0-10.5) x10^3/uL RBC 3.40 L (4.1-5.4) x10^6/uL Hgb 9.1 L (12.0-16.0) g/dL Hct 28.9 L (35-47) % MCV 85.0 (78-100) fL MCH 26.8 (26-32) pg MCHC 31.5 L (32-36) g/dL RDW 13.2 (11.5-14.0) % Plt Count 149 L (150-450) x10^3/uL MPV 10.1 (7.5-11.0) fL Gran % 78.8 H (36.0-66.0) % Immature Gran % (Auto) 0.5 H (0.00-0.4) % Nucleat RBC Rel Count 0.0 (0.00-0.1) % Eos # (Auto) 0.03 (0-0.5) x10^3/uL Immature Gran # (Auto) 0.04 H (0.00-0.03) x10^3u/L Absolute Lymphs (auto) 1.00 (1.0-4.6) x10^3/uL Absolute Monos (auto) 0.56 (0.0-1.3) x10^3/uL Absolute Nucleated RBC 0.00 (0.00-0.01) x10^3u/L Lymphocytes % 12.8 L (24.0-44.0) % Monocytes % 7.2 (0.0-12.0) % Eosinophils % 0.4 (0.00-5.0) % Basophils % 0.3 (0.0-0.4) % Absolute Granulocytes 6.16 (1.4-6.9) x10^3/uL Basophils # 0.02 (0-0.4) x10^3/uL Micro Results-Entire Visit: Microbiology 10/19/21 21:06 Urine Culture - Preliminary Urine, Catheterized NO GROWTH TO DATE - Procedures and Test Procedures and Tests throughout Hospitalization: Therapy Orders & Screens 10/19/21 20:09 Standby ROUTINE Comment: Diagnosis: check Discharge Exam General Appearance: no apparent distress, alert Respiratory Exam: normal breath sounds, lungs clear, No respiratory distress Cardiovascular Exam: regular rate/rhythm, normal heart sounds Gastrointestinal/Abdomen Exam: soft, other (incision clean, dry, intact), No tenderness, No mass Extremity Exam: normal inspection, normal range of motion Skin Exam: normal color, warm, dry Final Diagnosis/Problem List - Final Discharge Diagnosis/Problem (1) delivery delivered Current Visit: No Status: Acute Code(s): O82 - ENCOUNTER FOR DELIVERY WITHOUT INDICATION (2) Tubal ligation status Current Visit: Yes Status: Acute Code(s): Z98.51 - TUBAL LIGATION STATUS - Discharge Disposition: Home, Self-Care Condition: Stable Prescriptions: No Action No Reportable Medications [No Reported Medications] Follow up with: HAL RAYMOND MD [Primary Care Provider] -
[2021-10-21] MEDS: Docusate Sodium 100 MG PO SCH (08:05)
[2021-10-21] MEDS: FERREX 150 PO SCH (08:05)
[2021-10-21 08:35] VITALS: BP 120/73; PULSE 99; O2SAT 98
--- NOTE | 2021-10-21 09:08 | PCM.DCORD ---
- Discharge Disposition: Home, Self-Care Condition: Stable Prescriptions: New Hydrocodone/Acetaminophen [Hydrocodone-Acetamin 5-325 mg] 1 tab PO Q6HPRN PRN #20 tablet MDD 4 PRN Reason: Pain Follow up with: HAL RAYMOND MD [Primary Care Provider] - Forms: OB Discharge Instructions
== END 2021-10-21 10:00 | disposition home or self-care (01) | DRG 785 ==
LOC: OB 16:31
PROVIDERS: ADMIT Family Medicine; ATTEND Family Medicine
PROC: 10D00Z1 Extraction of Products of Conception, Low, Open Approach (ICD-10-PCS; principal; 2021-10-19)
PROC: 0U570ZZ Destruction of Bilateral Fallopian Tubes, Open Approach (ICD-10-PCS; 2021-10-19)
DX: O34.219 Maternal care for unspecified type scar from previous cesarean delivery (principal); N85.8 Other specified noninflammatory disorders of uterus; Z3A.37 37 weeks gestation of pregnancy; Z37.0 Single live birth; Z30.2 Encounter for sterilization
CPT/HCPCS: 36415; 62322; 64488; 76937; 76942; 81001; 85025; 85027; 85461; 85610; 85730; 86850; 86900; 86901; 87086; 90715; 94799; J0690; J2274; J2405; J2590; J2790; L0625; A9270-GY